=== PATIENT | male | born 1945 | race Caucasian/White ===

== ENCOUNTER 2018-04-02 12:54 | Observation (INO) ==
[2018-04-02] MEDS ORDERED: NS 1,000 ML IV ONE (13:16)
[2018-04-02] MEDS ORDERED: PEPCID IV ONE (13:17)
[2018-04-02] MEDS ORDERED: SODIUM CHLORIDE 0.9% INJ ONE (13:17)
[2018-04-02] MEDS ORDERED: ATIVAN IV ONE (13:26)
[2018-04-02 13:39] LABS: BASO# 0.03 X1000 (0.0-0.2); BASO% 0.3 % (0.0-0.8); EOS# 0.06 X1000 (0.0-0.7); EOS% 0.6 % (0.0-10.0); HEMATOCRIT 44.1 % (42.0-52.0); HEMOGLOBIN 15.2 g/dL (14.0-18.0); IMM GRAN# 0.02 X1000 (0.0-0.04); IMM GRAN% 0.2 % (0.0-0.5); LYMPH# 2.91 X1000 (1.2-3.4); LYMPH% 28.5 % (20.5-51.1); MCH 31.7 PG (27-31); MCHC 34.5 g/dL (33-37); MCV 91.9 FL (81-99); MONO# 0.76 X1000 (0.11-0.59); MONO% 7.4 % (1.7-9.3); MPV 10.7 FL (7.4-10.4); NEUT# 6.43 X1000 (1.4-6.5); PLT 303 X1000 (130-400); RDW 13.1 % (11.5-14.5); WBC 10.21 X1000 (4.8-10.8)
[2018-04-02 14:05] LABS: AGAP 18; ALB/GLOB RATIO 1.6; ALBUMIN 4.3 g/dL (3.5-5.0); ALKALINE PHOSPHATASE 131 U/L (32-122); BUN 10 mg/dL (8-22); CALCIUM 9.9 mg/dL (8.8-10.2); CHLORIDE 99 mmol/L (98-107); COSMO 275; CREATININE 0.9 mg/dL (0.7-1.2); ESTIMATED GFR > 60; GLUCOSE 98 mg/dL (70-104); GOT 34 U/L (10-34); GPT 33 U/L (10-44); POTASSIUM 3.8 mmol/L (3.5-5.1); SODIUM 138 mmol/L (136-145); TCO2 21 mmol/L (25-35)
[2018-04-02 14:27] LABS: UR AMPHETAMINES QUAL NONE DETECTED (NONE DETECT); UR BARBITUATES QUAL NONE DETECTED (NONE DETECT); UR BENZODIAZEPIN QUAL NONE DETECTED (NONE DETECT); UR CANNABINOIDS QUAL NONE DETECTED (NONE DETECT); UR COCAINE QUAL NONE DETECTED (NONE DETECT); UR METHADONE QUAL NONE DETECTED (NONE DETECT); UR OPIATES QUAL NONE DETECTED (NONE DETECT); UR OXYCODONE QUAL NONE DETECTED (NONE DETECT); UR PCP QUAL NONE DETECTED (NONE DETECT)
--- NOTE | 2018-04-02 14:47 | Diag Imaging Result Doc PS360 ---
CHEST-2 VIEWS - 04/02/2018 INDICATION: hemoptysis COMPARISON: 01/11/2018 FINDINGS: The lungs are normally expanded and clear. Heart size and mediastinal contours are normal. No pneumothorax or pleural effusion. IMPRESSION: Negative exam. Electronically signed by Seb Ortega 04/02/2018 2:44 PM
--- NOTE | 2018-04-02 14:48 | Diag Imaging Result Doc PS360 ---
ABDOMEN FLAT/UPRIGHT - 04/02/2018 INDICATION: hematemesis COMPARISON: 01/20/2015 FINDINGS: There is prominent rectal stool impaction with a stool ball measuring 12 cm in length and 7.5 cm in width. There is diffuse gas hyperinflation of the small bowel and colon. No obstruction or free air. IMPRESSION: Rectal stool impaction. Diffuse ileus. Electronically signed by Seb Ortega 04/02/2018 2:45 PM
[2018-04-02 16:45] LABS: INR 0.98; PROTIME 13.8 Seconds (11.0-16.0)
[2018-04-02 16:47] LABS: AMYLASE 41 U/L (20-200); LIPASE 28 U/L (13-60)
[2018-04-02 16:50] LABS: IRON SATURATION 32 %; TIBC 320 ug/dL; TOTAL IRON 103 ug/dL (53-167); UNBOUND IRON 217 ug/dL (112-346)
[2018-04-02] MEDS ORDERED: PROTONIX 80 MG in NS 80 ML IV ONE (17:00)
[2018-04-02 17:07] LABS: FERRITIN 79 ng/mL (30-400)
[2018-04-02] MEDS: KLONOPIN PO PRN (17:34)
[2018-04-02] MEDS: NS 1,000 ML IV SCH (17:34)
[2018-04-02 18:19] LABS: URINE SOURCE CLEAN CATCH
[2018-04-02 18:21] LABS: BILIRUBIN URINE NEGATIVE (NEGATIVE); BLOOD URINE NEGATIVE (NEGATIVE); COLOR YELLOW; GLUCOSE URINE NEGATIVE (NEGATIVE); KETONE URINE NEGATIVE (NEGATIVE); LEUKOCYTES URINE NEGATIVE (NEGATIVE); NITRITE URINE NEGATIVE (NEGATIVE); PH URINE 6.5; PROTEIN URINE NEGATIVE (NEGATIVE); TURBIDITY URINE CLEAR (CLEAR); UROBILINOGEN URINE NORMAL (NORMAL)
[2018-04-02 18:22] LABS: UR EPITHELIAL CELLS <10 /HPF (<10); URINE BACTERIA NEGATIVE /HPF; URINE RBC <10 /HPF (<10); URINE WBC <10 /HPF (<10)
--- NOTE | 2018-04-02 18:30 | HISTORY AND PHYSICAL ---
PRIMARY CARE PHYSICIAN: Dr. Daryl Partida. CHIEF COMPLAINT: Hemoptysis. HISTORY OF PRESENT ILLNESS: Mr. Jordan is a 72-year-old male with a history of anxiety, depression, alcohol dependence, nicotine dependence, hypertension and GERD who presents to the ER with abrupt onset of hemoptysis versus hematemesis. He woke up this morning with a sensation of his throat being full. He then began to cough and expectorated versus vomited blood. This happened 1 more time today, and he decided to come to the ER for evaluation. He was recently diagnosed with bronchitis and has a history of COPD as well, and has been on a Z -Trey for the past 3 days. He denies any fever at this time . No chest pain. He does have some mild epigastric discomfort and has reported some diarrhea over the past few days, but today has firmed up a little. In the ER he had several labs and diagnostics done. A chest x-ray was negative, and an abdomen x-rays revealed rectal stool impaction with diffuse ileus. His laboratory data is unremarkable. He does have an alcohol level of 44. We tried to question him about his daily alcohol use; however, he constantly deflected the question and would not be very specific at all. He did state that he had a drink this morning. He also states that he takes Klonopin and has run out of his medication. He said that he thinks someone has stolen it, and he has been drinking more to help with his anxiety. He is hemodynamically stable at this time. Hemoccult is negative. He is going to be admitted for further treatment and evaluation. PAST MEDICAL HISTORY: 1. COPD. 2. Recent diagnosis of COPD exacerbation. 3. Alcohol dependence. 4. Nicotine dependence. 5. Hypertension 6. BPH. 7. Anxiety and depression. 8. Nonobstructive coronary artery disease. PAST SURGICAL HISTORY: 1. He has had an appendectomy. 2. Carpal tunnel release. SOCIAL HISTORY: He smokes upwards of a pack a day. He is a daily drinker. We are unable to get a specific amount. He denies illicit drug use. FAMILY HISTORY: Significant for lung cancer and congestive heart failure. REVIEW OF SYSTEMS: A 14-point review of systems was obtained by me and negative with the exception of the HPI. ALLERGIES: No known drug allergies. HOME MEDICATIONS: 1. Abilify 5 mg daily. 2. Klonopin 2 mg p.o. t.i.d. 3. Cymbalta 60 mg p.o. daily. 4. Zestoretic 20-25 one daily. 5. Flomax 0.4 mg daily. PHYSICAL EXAMINATION: VITAL SIGNS: Blood pressure is 174/108, heart rate 99, respiratory rate 20, O2 saturation 96% on room air. Temperature is 99 degrees Fahrenheit. GENERAL: Chronically ill and disheveled-appearing 72-year-old male lying in hospital bed in no acute distress. NEUROLOGIC: He is awake, alert and oriented. Follows commands without focal deficits. HEENT: Head is atraumatic, normocephalic. His pupils are equal, round, and reactive to light. Oral mucosa is dry. NECK: Trachea is midline. There is no JVD. CHEST: Diminished at the based but clear to auscultation. CARDIOVASCULAR: Regular rate and rhythm. S1 and S2 noted. No murmurs. GI: Soft, nondistended, nontender. Bowel sounds are hypoactive. EXTREMITIES: Without edema,clubbing or cyanosis. Pulses are 1+ bilaterally. DIAGNOSTIC DATA: Abdomen x-ray shows rectal stool impaction with diffuse ileus. Chest x-ray is negative. WBCs 10.21, hemoglobin 15.2, hematocrit 44.1, platelet count 303. INR 0.98. Sodium 138, potassium 3.8, chloride 99. CO2 is 21, anion gap 18, BUN 10, creatinine 0.9, glucose 98. Calcium 9.9. AST 34, ALT 33, alkaline phosphatase 131, albumin 4.3. Amylase 41, lipase 28. Toxicology is negative with the exception of alcohol that is 44. ASSESSMENT/PLAN: 1. Hemoptysis versus hematemesis: Given the history of more than likely mild hematemesis, we are going to check a thorax, abdomen and pelvis CT, given the diffuse complaints as well as ileus on abdomen x-ray. Will start a Protonix drip and trend his hemoglobin and hematocrit. Will reevaluate tomorrow if hemoglobin and hematocrit drop or he has any more hematemesis. Will consult GI. If not, he will need to follow up with GI on an outpatient basis. 2. Ileus: Likely due to rectal stool impaction. Will check a CT and go from there. If the CT is negative for anything acute, may start him on some MiraLAX. 3. Alcohol dependence: High risk for withdrawal given his alcohol dependence as well as heavy use of benzodiazepines. Will continue his regular benzodiazepine and add IV Ativan if necessary. Will monitor him closely and make sure his CIWA scale is placed on the chart as well. 4. Nicotine dependence. We have advised the patient to quit smoking. Will write a nicotine patch. Continue daily cessation education. 5. Hypertension. Will treat with IV right now. He is on an angiotensin- converting-enzyme inhibitor with diuretic, which if bleeding, would be contraindicated. 6. Deep venous thrombosis prophylaxis with sequential compression devices 7. Further recommendations to follow this. Dictated by RONY Harris for Ze Way MD cc: RONY Harris MD Agree with above. the following is my own face to face assessment and exam. Patient with history of alcohol abuse presents with complaints of hemoptysis at home. no further vomiting since arrival. FOBT negative. abdomen: soft, nontender, nondistended on exam. abx ray suggesting ileus so patient was admitted for observation, CT abd, IVF, and monitoring of blood counts. Patient states that he ran out of his home klonopin and has been drinking heavily since then. on review of PDMP, it appears that he filled a 1 month supply of klonopin 2mg TID approximately 2 weeks ago. MTDD
--- NOTE | 2018-04-02 18:40 | Diag Imaging Result Doc PS360 ---
CT THORAX/ABD/PELVIS W/CON - 04/02/2018 INDICATION: hemoptysis, ileus COMPARISON: None FINDINGS: CHEST: There is no adenopathy. Heart and great vessels are normal. Airways are clear. There is a very faint infiltrate in the posterior apical right upper lobe. No significant COPD. There are moderate degenerative changes of the spine. No acute or suspicious bony lesion. Abdomen pelvis: There are bilateral renal cysts. Otherwise all abdominal organs are normal. No bowel obstruction or inflammation. No free air or free fluid. There is diffuse wall thickening of the urinary bladder suggesting cystitis. The prostate is irregular with a small hypoenhancing nodule projecting into the urinary bladder measuring just over a centimeter. There is mild rectal stool impaction. There is some rotary scoliosis of the thoracolumbar spine. There are moderate degenerative changes of the spine. No acute or suspicious bony lesion. IMPRESSION: 1. Faint right upper lobe infiltrate compatible with pneumonia. 2. Cystitis of the urinary bladder. 3. Mild rectal stool impaction. 4. Indeterminate, small nodule of the prostate gland. Outpatient management recommended. This exam was performed using automated exposure control, adjustment of mA or kV according to patient size, and/or use of iterative reconstruction technique Electronically signed by Seb Ortega 04/02/2018 6:38 PM
[2018-04-02 20:49] LABS: HEMATOCRIT 36.5 % (42.0-52.0); HEMOGLOBIN 12.7 g/dL (14.0-18.0)
[2018-04-03 01:58] LABS: HEMATOCRIT 37.8 % (42.0-52.0); HEMOGLOBIN 13.1 g/dL (14.0-18.0)
[2018-04-03] MEDS: NS 1,000 ML IV SCH ×2 (02:59→16:00)
[2018-04-03] MEDS: KLONOPIN PO PRN ×2 (03:05→11:22)
[2018-04-03] MEDS ORDERED: PROTONIX 80 MG in NS 80 ML IV SCH (05:00)
[2018-04-03 06:26] LABS: BASO# 0.03 X1000 (0.0-0.2); BASO% 0.4 % (0.0-0.8); EOS# 0.26 X1000 (0.0-0.7); EOS% 3.6 % (0.0-10.0); HEMATOCRIT 36.9 % (42.0-52.0); HEMOGLOBIN 12.6 g/dL (14.0-18.0); LYMPH# 2.25 X1000 (1.2-3.4); LYMPH% 31.3 % (20.5-51.1); MCH 31.9 PG (27-31); MCHC 34.1 g/dL (33-37); MCV 93.4 FL (81-99); MONO# 0.55 X1000 (0.11-0.59); MONO% 7.6 % (1.7-9.3); MPV 10.4 FL (7.4-10.4); NEUT# 4.11 X1000 (1.4-6.5); NEUT% 57.1 % (42.2-75.2); PLT 223 X1000 (130-400); RBC 3.95 XMIL (4.7-6.1); RDW 13.1 % (11.5-14.5)
[2018-04-03 06:52] LABS: AGAP 12; ALB/GLOB RATIO 1.8; ALBUMIN 3.4 g/dL (3.5-5.0); ALKALINE PHOSPHATASE 103 U/L (32-122); BUN 11 mg/dL (8-22); CALCIUM 9.1 mg/dL (8.8-10.2); CHLORIDE 108 mmol/L (98-107); COSMO 284; CREATININE 0.9 mg/dL (0.7-1.2); ESTIMATED GFR > 60; GLUCOSE 84 mg/dL (70-104); GOT 18 U/L (10-34); GPT 23 U/L (10-44); POTASSIUM 4.1 mmol/L (3.5-5.1); SODIUM 143 mmol/L (136-145); TCO2 23 mmol/L (25-35); TOTAL BILIRUBIN 0.73 mg/dL (0.20-1.00); TOTAL PROTEIN 5.3 g/dL (6.3-8.3)
[2018-04-03 08:47] LABS: HEMATOCRIT 38.4 % (42.0-52.0); HEMOGLOBIN 13.3 g/dL (14.0-18.0)
[2018-04-03] MEDS ORDERED: ULTRAM PO PRN (08:57)
[2018-04-03] MEDS ORDERED: CYMBALTA PO SCH (09:00)
[2018-04-03] MEDS ORDERED: FLOMAX PO SCH (09:00)
[2018-04-03] MEDS ORDERED: DULCOLAX PR SCH (09:00)
[2018-04-03] MEDS ORDERED: ABILIFY PO SCH (09:00)
[2018-04-03] MEDS ORDERED: LEVAQUIN 750 MG/D5W 750 MG/150 ML IVPB IV SCH (09:00)
[2018-04-03] MEDS ORDERED: NICODERM PATCH TD ONE (09:46)
[2018-04-03 15:33] VITALS: BP 176/72
--- NOTE | 2018-04-04 03:53 | CONSULTATION ---
DATE OF CONSULTATION: 04/03/2018 HISTORY OF PRESENT ILLNESS: Mr. Jordan was admitted to the hospital with complaints of hemoptysis. He has had 2 episodes where he felt something in the back of the throat and he spit up. Then he saw bright red blood. He tells me that it was about a couple of spoonfuls of blood. He has not had any melena or bright red blood per rectum. He denies any abdominal pain. Has not had any indigestion, heartburn, or reflux symptoms. He denies coffee-grounds emesis. He has not been nauseated. He tells me he has been very depressed and has not been feeling good. He, however, denies any fever or chills. Denies headache, dizziness, or double vision. His appetite has not been fair. Again, he tells me that he is depressed and does not want to do anything. He has been drinking heavily and smokes. Since admission, he has not had any GI symptoms. He has been able to tolerate a diet. OBJECTIVE: His vitals are stable. ASSESSMENT AND PLAN: The patient appears to have had hemoptysis and no gastrointestinal issues noted. I would recommend to continue a proton pump inhibitor and he is stable enough to be discharged to be followed up at the office from a gastrointestinal perspective. CT scan had shown evidence of possible pneumonia which can be treated with antibiotics. A full consult to be followed. cc: Caleb Dwyer MD
--- NOTE | 2018-04-04 04:09 | DISCHARGE SUMMARY ---
ADMISSION DATE: 04/02/2018 DISCHARGE DATE: 04/03/2018 CONSULTS: Gastroenterology, Dr. Dwyer. IMAGING: Chest x-ray, no acute process. Initial abdominal x-ray, rectal stool impaction, ileus. Followup CT abdomen/pelvis with faint right upper lobe infiltrate compatible with pneumonia, mild rectal stool impaction, small nodule of the prostate gland. LABS: Initial hemoglobin 15.2, repeat 12.7, final 13.3. Initial hematocrit 44.1, repeat 36.5, final 38.4. Complete metabolic panel unremarkable. Urinalysis within normal limits. WBC and platelets within normal limit. Stool occult blood negative. DISCHARGE DIAGNOSES: 1. Possible upper gastrointestinal bleed. 2. Constipation. 3. Alcohol abuse. 4. Benzodiazepine dependence. 5. Community-acquired pneumonia. 6. Prostate nodule. HOSPITAL COURSE: The patient presented initially to the ER complaining of 1 episode of significant volume hematemesis. This was not repeated and there was no further vomiting in the ED. However, initial evaluation showed an abdominal x-ray suggestive of ileus so he is admitted for further evaluation. His initial hemoglobin and hematocrit were normal. Repeat did drop significantly from 15.2 to 12.7, but subsequent rechecks were stable to slightly improved from there and hemoglobin on discharge was 13.3. He was given an enema in the ER and laxatives with improvement in his constipation. CT followup did show constipation, but did not appear to show any true ileus. It did incidentally note a faint right upper lobe infiltrate favored to represent a mild pneumonia, so patient was started on Levaquin for this. Also was incidentally noted to have an indeterminate small nodule of the prostate gland for which outpatient followup with his PCP was recommended. GI evaluated the patient, but as his stool occult blood was negative, he had no further vomiting since arrival to the hospital and after the initial drop, his subsequent hemoglobins and hematocrits remained stable, GI (Dr. Dwyer) recommended discharge with followup in clinic for possible EGD as an outpatient. The patient also endorsed heavy alcohol use especially since he had run out of his Klonopin. The patient has been prescribed Klonopin 2 mg t.i.d. for a prolonged period of time. States he ran out several days ago. [facility], the patient had filled a full month's worth of 2 mg t.i.d. Klonopin approximately 2 weeks prior to admission. He was continued on this during his hospital stay, but when he requested a refill of this prescription, his request was denied. alcohol cessation was discussed but patient did not have any interest in quitting. The patient was discharged in stable condition to follow up with his PCP and GI. DISCHARGE VITAL SIGNS: Temperature 97.8 degrees, pulse 68, respirations 16, blood pressure 155/83, O2 saturation 100% on room discharge. DISCHARGE PHYSICAL EXAMINATION: General: No acute distress. Vitals: As above. HEENT: Well- healed scar along forehead. Otherwise, normocephalic, atraumatic. Moist mucous membranes. No dried blood in the mouth or nares. Moist mucous membranes. No cervical adenopathy. Cardiovascular: Regular rate and rhythm. No murmurs, rubs, or gallops. Pulmonary: Clear to auscultation bilaterally. Abdomen: Soft, nontender. No epigastric tenderness. Nondistended. Bowel sounds positive. Extremities: Peripheral pulses intact. No clubbing, cyanosis, or edema. Neurologic: Cranial nerves 2-12 grossly intact. No focal motor or sensory deficits. No tremulousness or asterixis. Psychiatric: Normal mood and affect. Awake, alert , oriented x3. Skin: No new rashes or lesions noted. DISCHARGE DIET: Regular. DISCHARGE MEDICATIONS: Abilify 5 mg p.o. daily, Klonopin 2 mg p.o. t.i.d., Cymbalta 60 mg p.o. daily, lisinopril/hydrochlorothiazide 20/25 one tablet daily, Flomax 0.4 mg p.o. daily, Protonix 40 mg p.o. daily, Levaquin 750 mg p.o. daily x7 days. FOLLOWUP AND PLAN: Patient to discharge home with Protonix. The patient to follow up with GI for possible outpatient EGD. The patient to take a short course of Levaquin for very mild community-acquired pneumonia. The patient to follow up with PCP for further evaluation of the prostate nodule identified incidentally on CT. Recommended to patient that he discuss with his PCP weaning off of Klonopin as he appears to be dependent on it and likely abusing it. TIME: Greater than 30 minutes spent arranging discharge and counseling patient. [facility]
--- NOTE | 2018-04-04 08:20 | EKG Report ---
Test Performed on : 04/02/2018 1:08:39 PM Test Reason : hemoptysis Blood Pressure : / mmHG Vent. Rate : 099 BPM Atrial Rate : 099 BPM P-R Int : 170 ms QRS Dur : 086 ms QT Int : 364 ms P-R-T Axes : 061 039 038 degrees QTc Int : 467 ms Normal sinus rhythm. Normal ECG When compared with ECG of 11-JAN-2018 18:50, No significant change was found Unconfirmed Result
--- NOTE | 2018-04-04 16:36 | CONSULTATION ---
DATE OF CONSULTATION: 04/03/2018 CONSULTING PHYSICIAN: Dr. Way. REASON FOR CONSULT: Hemoptysis. HISTORY: Mr. Jordan is a 72-year-old white male with a history of gastroesophageal reflux disease. He has been under the weather. He has been depressed. Living by himself. He is retired. He has been drinking quite heavy, and he is a smoker as well. He tells me that he had felt something in the back of the throat, and coughed up, and apparently had spit-up a couple of spoonfuls of blood. It was bright red blood. He had not had any nausea or hematemesis or coffee- ground emesis. He denies indigestion, heartburn, reflux symptoms. He carries a diagnosis of reflux disease, but he did not have any symptoms of reflux. His appetite has been fair, but he does not want to eat, as he has he is depressed, and lives by himself. He denied any fever or chills. He has had no chest pain, shortness of breath, or palpitations. Denies any cough or sputum. He has not had any constipation or diarrhea. Denies any blood or mucus in his stool. Has not had any melena. Denies any dysuria, polyuria, or hematuria. PAST MEDICAL HISTORY: Significant for gastroesophageal reflux disease, COPD, hypertension, BPH. PAST SURGICAL HISTORY: He has had an appendectomy and carpal tunnel release. HOME MEDICATIONS: The patient is currently on Zestoretic, Cymbalta, Klonopin, Abilify, and Flomax. ALLERGIES: No known drug allergies. SOCIAL HISTORY: He is retired, lives by himself. He has 2 sons. [place]. He smokes about a pack of cigarettes per day and drinks heavily, and drinks daily. He does not use illicit drugs. FAMILY HISTORY: Noncontributory. REVIEW OF SYSTEMS: As per HPI above. PHYSICAL EXAMINATION: General: A very pleasant white male. He is lying in bed. He is conscious, alert, and appeared to be in no distress, but he appeared to be withdrawn. Vital Signs: Temperature 98.4 degrees, pulse 66 per minute, breathing 16, blood pressure 161/95. Head: Atraumatic, normocephalic. Eyes: Conjunctivae normal. Sclerae anicteric. Nose: Nares are patent. No discharge. Mouth: Buccal mucosa moist. Throat: Normal. Neck: Neck is supple. No lymphadenopathy or thyromegaly. Chest: Bilaterally symmetrical. It is moving with respirations. Breath sounds audible bilaterally. No rhonchi or creps could be heard. Heart: Audible. No murmur could be appreciated. Abdomen: Full, soft, nontender. I could not appreciate any masses or organomegaly. No ascites noted. Bowel sounds audible. Extremities: No pedal edema, cyanosis, clubbing was noted. CORE ANALYSIS OPERATOR: Grossly intact. No sensory or motor deficit. LABORATORIES: Reviewed, which showed WBC of 7.20. Hemoglobin today 13.3, yesterday on admission was 12.7. Hematocrit 38.4, which yesterday was 36.5. MCV 93.4. Platelets were 223. PT 13.8, INR 0.98. Sodium 143, potassium 4.1, chloride 108, bicarb 23, BUN is 11, creatinine 0.9. Transaminases were normal. Alkaline phosphate 103. Urinalysis negative. He did have plasma ethyl alcohol present. IMPRESSION: A 72-year-old gentleman who had presented with symptoms suggestive of hemoptysis, rather than hematemesis. He has not had any melena or any other signs of GI bleed. His hemoglobin, although low, but has been stable. There was no drop in his hemoglobin or hematocrit. He is asymptomatic from a GI point of view. CT scan done showed evidence of pneumonia. At this point, I do not think he needs any GI intervention. I would continue current treatment. I have put him on GI prophylaxis by putting on proton pump inhibitor daily. In the meantime, continue antibiotic, and discharge once he is stable from other medical point of view. I will be happy to follow as an outpatient. I have had a discussion with him about abstinence from alcohol, and stop smoking as well, but the patient seems to be withdrawn and depressed. He may need intervention in that regard. cc: Caleb Dwyer MD
--- NOTE | 2018-04-07 19:43 | PROVIDER DOCUMENTATION ---
This chart was entered by Cathy Walton Scribe, acting as scribe for Seamus Padron DO. HPI-Abdominal Pain/GI Problem - General Stated Complaint: vomiting blood Time Seen by Provider: 04/02/18 12:55 Source: patient, EMS Allergies/Adverse Reactions: Patient Allergies Allergy/AdvReac Type Severity Reaction Status Date / Time No Known Allergies Allergy Verified 01/11/18 19:02 Home Medications: Home Medication List Medication Instructions Recorded Confirmed Last Taken Type Lisinopril/Hydrochlorothiazide 1 each PO DAILY 04/06/13 04/02/18 08/25/13 09:00 History [Zestoretic 20-25 Tablet] Clonazepam [Klonopin] 2 mg PO TID PRN 07/15/13 04/02/18 08/18/13 History Tamsulosin [Flomax] 0.4 mg PO DAILY 07/15/13 04/02/18 08/25/13 09:00 History Aripiprazole [Abilify] 5 mg PO DAILY 04/02/18 04/02/18 Unknown History Duloxetine [Cymbalta] 60 mg PO DAILY 04/02/18 04/02/18 Unknown History Levofloxacin [Levaquin] 750 mg PO DAILY #7 tab 04/03/18 Unknown Rx Pantoprazole [Protonix] 40 mg PO DAILY@0700 #30 tab 04/03/18 Unknown Rx - History of Present Illness-ABD Nature of Presenting Problems: 72 y/o male presents to the ED via EMS after vomiting blood which awoke him this am. The patient states this is a large amount of red blood. The patient states he was seen at ER in [place] on Wednesday for similar symptoms and was given Z pack which he has taken four tablets. The patient states he is out of his Klonopin and he needed something for his nerves so he drank about a half pint of Yana last night. Abdominal Pain Onset Location: reports: other (None) Quality of Pain: reports: none Onset/Duration: reports: unsure Timing: reports: still present Modifying Factors: improves with: nothing Associated Symptoms: denies: diarrhea, fever/chills, genitourinary problems Emesis Description: reports: red blood, other (thick) Bruising or Bleeding Gums?: No Similar Symptoms Previously?: Yes Recently seen or treated by another doctor?: Yes ([facility] Wednesday ) Review of Systems - Adult - REVIEW OF SYSTEMS - ADULT Constitutional: denies: chills, fever, night sweats Eyes: reports: no symptoms reported Ears, Nose, Mouth & Throat: reports: no symptoms reported Cardiovascular: reports: no symptoms reported Respiratory: reports: no symptoms reported Gastrointestinal: reports: hematemesis. denies: abdominal pain, diarrhea, difficulty swallowing Genitourinary: reports: no symptoms reported Musculoskeletal: reports: no symptoms reported Integumentary: reports: no symptoms reported Neurological: reports: no symptoms reported Psychiatric: reports: anxiety, alcohol/drug dependence. denies: suicidal thoughts Endocrine: reports: no symptoms reported Hematologic/Lymphatic: reports: no symptoms reported Allergic/Immunologic: reports: no symptoms reported All Other Systems: Reviewed and Negative Past History - Adult - PAST MEDICAL HISTORY-ADULT Review of Records: reports: Old Records Reviewed, Nursing Assessment Review, Medications Reviewed - IMMUNIZATION STATUS Childhood Immunizations: See Nurse Assessment Flu Vaccine: See Nurse Assessment - SOCIAL HISTORY Smoking: cigarettes, greater than 1 pack/day Provider spent 3-5 mins advising pt. on dangers of tobacco.: Discussed manners to quit use, and f/u contacts for add'l counseling. Substance Use: alcohol Alcohol Use Frequency: every day Physical Exam-General - PHYSICAL EXAM-ADULT Initial Vital Signs Reviewed: Yes - CONSTITUTIONAL General Appearance: alert, no apparent distress - HEAD, EARS, NOSE, MOUTH & THROAT HENMT: normocephalic/atraumatic, moist mucous membranes - NECK Neck: non-tender, full range of motion, supple - RESPIRATORY Respiratory: normal breath sounds, rhonchi (left greater than right). negative : chest non-tender, rales - CARDIOVASCULAR Cardiovascular: regular rate, rhythm, no edema, no gallop, no JVD - GASTROINTESTINAL (ABDOMEN) Abdominal Exam: non tender, soft, other (long xiphoid process). negative: guarding, rebound - GENITOURINARY Rectal Exam: normal rectal tone, prostate enlarged/nodule (mild), other (brown stool present in rectum). negative: tenderness - MUSCULOSKELETAL Extremity: non-tender, no pedal edema, no calf tenderness - SKIN Integumentary: normal color, warm/dry - NEUROLOGIC Neurologic: grossly normal Progress - PLAN OF CARE/RESULTS Result Diagrams: 04/03/18 08:02 04/03/18 06:00 - REASSESSMENT Reassessment #1 Time Reassessed: 15:29 Status: other (physician at bedside) - EKG 1 Time of EKG reading by physician:: 13:08 EKG Read and Signed by:: Seamus Padron EKG Interpretation (*Must complete 3 of following elements*): Normal Rate: 99 Rhythm: NSR Candler: normal NC Interval: normal - XRAY 1 XRAY Study: Abdomen Impression: Abnormal (ABDOMEN FLAT/UPRIGHT - 04/02/2018 INDICATION: hematemesis COMPARISON: 01/20/2015 FINDINGS: There is prominent rectal stool impaction with a stool ball measuring 12 cm in length and 7.5 cm in width. There is diffuse gas hyperinflation of the small bowel and colon. No obstruction or free air. IMPRESSION: Rectal stool impaction. Diffuse ileus. Electronically signed by Seb Ortega 04/02/2018 2:45 PM) 2 XRAY Study: Chest Impression: Normal (CHEST-2 VIEWS - 04/02/2018 INDICATION: hemoptysis COMPARISON: 01/11/2018 FINDINGS: The lungs are normally expanded and clear. Heart size and mediastinal contours are normal. No pneumothorax or pleural effusion. IMPRESSION: Negative exam. Electronically signed by Seb Ortega 04/02/2018 2:44 PM) - CONSULTS/PCP/HOSPITALIST Notification #1 *Consult/PCP/Hospitalist*: Jn Time Discussed: 15:44 ( ) Reason/Comments: GI bleed Consult Disposition: Will see in ED (Dr. Way) Departure - Departure Date of Disposition Decision: 04/02/18 Time of Disposition Decision: 15:47 DIAGNOSIS: Tobacco abuse disorder Disposition: ADMITTED INPATIENT 09 Certified Medical Emergency: Emergent Condition: Serious - Critical Care Note This patient required my direct & personal management of CC.: No Attestation - Physician/ VANDANA Attestation Patient care was provided by Advanced Practice Provider:: No The physician spent face to face time with patient:: Yes Advanced Practice Provider documentation review:: Supervising physician onsite and consulted in the evaluation and care of this patient. The physician did have a face to face encounter with the patient. This chart was documented by the indicated eloinaibe, (Cathy Walton Scribe) and accurately reflects the services I performed and decisions made by , Seamus Padron DO, as attested by the provider's signature.
== END 2018-04-03 17:25 | disposition home or self-care (01) ==
LOC: ED 12:54 → 4N 12:54
PROVIDERS: ATTEND Internal Medicine
CPT/HCPCS: 36415; 71020; 71046; 71260; 74019; 74020; 74177; 80053; 80101; 80301; 80307; 80320; 80324; 80345; 80346; 80353; 80358; 80361; 80365; 81001; 82055; 82150; 82270; 82607; 82728; 82746; 83540; 83550; 83690; 83992; 85014; 85018; 85025; 85610; 93005; 96361; 96374; 96375; 99285; A9270; C9113; G0431; G0434; G0479; G0480; G6040; J1956; J2060; J7030; Q9967; S0028; S0164

== ENCOUNTER 2019-02-08 10:03 | Inpatient (IN) ==
[2019-02-08] MEDS ORDERED: IMODIUM PO PRN ×2 (12:08)
[2019-02-08] MEDS ORDERED: DULCOLAX PR PRN (12:08)
[2019-02-08] MEDS ORDERED: SENOKOT PO PRN (12:08)
[2019-02-08] MEDS ORDERED: MAALOX PLUS LIQUID PO PRN (12:08)
[2019-02-08] MEDS ORDERED: TUBERSOL ID ONE (12:08)
[2019-02-08] MEDS ORDERED: ZOFRAN IV PRN (12:08)
[2019-02-08] MEDS ORDERED: TYLENOL PO PRN (12:08)
[2019-02-08] MEDS ORDERED: PHENOBARBITAL IV PRN (12:08)
[2019-02-08] MEDS ORDERED: ZOFRAN ODT PO PRN (12:08)
[2019-02-08] MEDS ORDERED: NICOTINE GUM BUCCAL PRN (12:08)
[2019-02-08] MEDS ORDERED: ZOFRAN IM PRN (12:08)
[2019-02-08] MEDS ORDERED: MOTRIN PO PRN (12:08)
[2019-02-08] MEDS ORDERED: D5W 1,000 ML IV PRN (12:08)
[2019-02-08 12:35] LABS: URINE SOURCE CLEAN CATCH
[2019-02-08 12:39] LABS: BILIRUBIN URINE NEGATIVE (NEGATIVE); BLOOD URINE NEGATIVE (NEGATIVE); COLOR YELLOW; GLUCOSE URINE NEGATIVE (NEGATIVE); KETONE URINE TRACE mg/dL (NEGATIVE); LEUKOCYTES URINE NEGATIVE (NEGATIVE); NITRITE URINE NEGATIVE (NEGATIVE); PROTEIN URINE NEGATIVE (NEGATIVE); SP GRAVITY URINE 1.009; TURBIDITY URINE CLEAR (CLEAR); UROBILINOGEN URINE NORMAL (NORMAL)
[2019-02-08 12:41] LABS: UR EPITHELIAL CELLS <10 /HPF (<10); URINE BACTERIA NEGATIVE /HPF; URINE RBC <10 /HPF (<10); URINE WBC <10 /HPF (<10)
[2019-02-08] MEDS ORDERED: FLU VACCINE IM ONE (12:41)
[2019-02-08 12:48] LABS: UR AMPHETAMINES QUAL NONE DETECTED (NONE DETECT); UR BARBITUATES QUAL NONE DETECTED (NONE DETECT); UR BENZODIAZEPIN QUAL PRESUMPTIVE POSITIVE (NONE DETECT); UR CANNABINOIDS QUAL NONE DETECTED (NONE DETECT); UR COCAINE QUAL NONE DETECTED (NONE DETECT); UR METHADONE QUAL NONE DETECTED (NONE DETECT); UR METHAMPHETAMINE QUAL NONE DETECTED (NONE DETECT); UR OPIATES QUAL PRESUMPTIVE POSITIVE (NONE DETECT); UR OXYCODONE QUAL NONE DETECTED (NONE DETECT); UR PCP QUAL NONE DETECTED (NONE DETECT); UR PROPOXYPHENE QUAL NONE DETECTED (NONE DETECT); UR TCA QUAL NONE DETECTED (NONE DETECT)
[2019-02-08 13:47] LABS: HEMATOCRIT 41.5 % (42.0-52.0); HEMOGLOBIN 14.7 g/dL (14.0-18.0); MCHC 35.4 g/dL (33-37); MCV 90.2 FL (81-99); MPV 9.8 FL (7.4-10.4); RBC 4.6 XMIL (4.7-6.1); RDW 12.9 % (11.5-14.5); WBC 16.32 X1000 (4.8-10.8)
[2019-02-08 14:12] LABS: ALBUMIN 4.6 g/dL (3.5-5.0); CALCIUM 10.1 mg/dL (8.8-10.2); CREATININE 1.2 mg/dL (0.7-1.2); POTASSIUM 3.2 mmol/L (3.5-5.1); TOTAL BILIRUBIN 0.6 mg/dL (0.20-1.00); TOTAL PROTEIN 7.3 g/dL (6.3-8.3)
[2019-02-08 14:16] LABS: INR 0.98; PROTIME 13.5 Seconds (11.0-16.0)
[2019-02-08] MEDS ORDERED: BENTYL PO PRN (14:49)
[2019-02-08] MEDS ORDERED: SALINE LOCK IV FLUID XX ONE (14:49)
[2019-02-08] MEDS ORDERED: LIBRIUM PO SCH (15:00)
[2019-02-08] MEDS: LIBRIUM PO SCH ×2 (15:55→20:33)
[2019-02-08] MEDS: KLOR-CON PO SCH ×2 (15:56→20:33)
[2019-02-08] MEDS ORDERED: M.V.I.-12 10 ML, FOLIC ACID 1 MG, MAGNESIUM SULFATE 1 GM, THIAMINE 100 MG in NS 1,000 ML IV ONE (16:00)
[2019-02-08] MEDS: ATARAX PO PRN (16:37)
[2019-02-08] MEDS: NICODERM PATCH TD PRN (17:07)
[2019-02-08] MEDS: DESYREL PO PRN (20:34)
[2019-02-09] MEDS: SEROQUEL PO PRN ×2 (00:54→21:53)
[2019-02-09] MEDS: ATARAX PO PRN (00:54)
[2019-02-09] MEDS: LIBRIUM PO SCH ×4 (03:11→21:38)
[2019-02-09] MEDS: ROBAXIN PO PRN (03:11)
[2019-02-09] MEDS: PROTONIX PO SCH (06:44)
[2019-02-09 06:57] LABS: HEMATOCRIT 37.9 % (42.0-52.0); HEMOGLOBIN 12.9 g/dL (14.0-18.0); MCH 32.4 PG (27-31); MCV 95.2 FL (81-99); MPV 10.1 FL (7.4-10.4); RBC 3.98 XMIL (4.7-6.1); RDW 13.4 % (11.5-14.5); WBC 11.55 X1000 (4.8-10.8)
[2019-02-09] MEDS ORDERED: PRILOSEC PO SCH (07:00)
[2019-02-09 07:27] LABS: AGAP 10; ALBUMIN 3.7 g/dL (3.5-5.0); ALKALINE PHOSPHATASE 79 U/L (32-122); BUN 28 mg/dL (8-22); CALCIUM 9.5 mg/dL (8.8-10.2); CHLORIDE 108 mmol/L (98-107); COSMO 282; CREATININE 1.2 mg/dL (0.7-1.2); GLUCOSE 143 mg/dL (70-104); GOT 21 U/L (10-34); POTASSIUM 4.7 mmol/L (3.5-5.1); SODIUM 137 mmol/L (136-145); TCO2 19 mmol/L (25-35)
[2019-02-09 07:28] LABS: GPT 79 U/L (10-44)
[2019-02-09] MEDS: DESYREL PO SCH (10:43)
[2019-02-09] MEDS: KLOR-CON PO SCH ×2 (10:43→21:38)
[2019-02-09] MEDS: FOLIC ACID PO SCH (10:43)
[2019-02-09] MEDS: PRINIVIL PO SCH (10:44)
[2019-02-09] MEDS: THERA M PLUS PO SCH (10:44)
[2019-02-09] MEDS: FLOMAX PO SCH (10:44)
[2019-02-09] MEDS: CYMBALTA PO SCH (10:44)
[2019-02-09] MEDS: VITAMIN B-1 PO SCH (10:44)
[2019-02-09] MEDS: ZYPREXA PO SCH (10:46)
[2019-02-09] MEDS: NICODERM PATCH TD PRN (16:52)
[2019-02-10] MEDS: LIBRIUM PO SCH ×4 (03:26→21:01)
[2019-02-10] MEDS: ROBAXIN PO PRN ×2 (05:55→13:58)
[2019-02-10] MEDS: PROTONIX PO SCH ×2 (05:55→06:13)
[2019-02-10] MEDS: KLOR-CON PO SCH ×2 (10:01→21:00)
[2019-02-10] MEDS: THERA M PLUS PO SCH (10:02)
[2019-02-10] MEDS: ZYPREXA PO SCH (10:02)
[2019-02-10] MEDS: CYMBALTA PO SCH (10:02)
[2019-02-10] MEDS: FOLIC ACID PO SCH (10:02)
[2019-02-10] MEDS: VITAMIN B-1 PO SCH (10:02)
[2019-02-10] MEDS: DESYREL PO SCH ×2 (10:02→10:47)
[2019-02-10] MEDS: PRINIVIL PO SCH (10:02)
[2019-02-10] MEDS: FLOMAX PO SCH (10:06)
--- NOTE | 2019-02-10 19:35 | PROGRESS NOTE ---
DATE: 02/10/2019 SUBJECTIVE: Patient notes that he feels absolutely terrible. However, unfortunately he is unable to delineate what this actually means. States that he just knows he is going to have a panic attack at any moment because he has not been on his Klonopin. States that he is a really anxious person and Klonopin is the only thing that prevents him from being anxious. But notes that he will take Xanax or Valium if will give that to him. PHYSICAL: Vital signs reviewed. Temperature 99 degrees, pulse 75, respiratory rate 18, BP 114/65.General: Patient is awake currently in no respiratory distress. He is lying in bed. He is calm. HEENT: Normocephalic. Neck: Supple. CV: Regular rate. Chest: Clear. Abdomen: Soft, nondistended. Extremities: Moves all extremities. ASSESSMENT: 1. Nausea, vomiting. 2. Abdominal pain. 3. Tremors. 4. Myalgias. 5. Paresthesias. 6. Chronic anxiety, depression. 7. Chronic alcohol abuse, withdrawal and stabilization. 8. Chronic benzodiazepine abuse, withdrawal and stabilization. CONSULTATIONS: None. PLAN: We will continue patient in the hospital. Again discussed with him that Librium and Klonopin both have benzodiazepines so he will not actually go into withdrawal from Klonopin as he currently is still on a benzodiazepine. Discussed with him that Klonopin cannot prevent futuristic unforeseen panic attack however it can cause abuse, habituation dependence and addiction. We will continue to wean Librium and continue to follow. -5 cc: Paco Goldman MD
[2019-02-10] MEDS: SEROQUEL PO PRN (21:00)
--- NOTE | 2019-02-10 23:08 | HISTORY AND PHYSICAL ---
CHIEF COMPLAINT: Nausea, vomiting. HISTORY OF PRESENT ILLNESS: Patient is a 73-year-old male who [facility] secondary to nausea, vomiting, abdominal pain, myalgias. Notes that he has been heavily drinking. He also takes 2 mg of Klonopin 3 times a day. However, states he does not abuse this, but oddly enough he is out early frequently. SOCIAL HISTORY: He is . He is retired. Lives at home in [place]. PAST MEDICAL HISTORY: History of hypertension, bleeding ulcers, chronic anxiety, depression, panic attacks, history of blackouts with his most recent being August of 2018 that was felt to be alcohol related. Has recurrent urinary infections, recurrent pneumonia, chronic reflux, BPH. ALLERGIES: No known drug allergies. MEDICATIONS: Klonopin 2 mg 3 times a day, Flomax 0.4 daily, omeprazole 40, Cymbalta 60, lisinopril 40, amlodipine 10 daily. FAMILY HISTORY: Noncontributory. REVIEW OF SYSTEMS: CIWA score is elevated at 29 secondary to nausea, vomiting, abdominal pain, myalgias, paresthesias, paroxysmal sweating, frequent fidgety, anxious, unable to sit still, is easily startled, has sensitivity to light and noise. He has had suicidal ideations off and on secondary to his chronic anxiety, but denies any current plans. Has been to Psychiatry in the past but has not been going recently. Currently, he is getting his Klonopin and Cymbalta from his primary doctor. Notes that he has stopped Abilify because he could not afford it. SUBSTANCE ABUSE HISTORY: The patient has been in treatment in detox in [place] in 2014 for 5 days and 2016 for 5 days. Each time he relapsed pretty quickly. Notes that alcohol has caused health problems, financial problems and relationship problems. Denies abusing Klonopin, but does note that he frequently runs out early and takes opiates when he runs out. He began drinking at 18, currently drinks a pint of 80 proof flynn a day and usually beer on the weekends. Has been taking Klonopin for years. He clearly has been overtaking his Klonopin although he denies such. Started opiates in his 50s, typically takes only when he runs out of Klonopin. Started smoking in his 20s. Currently smokes a pack a day. PHYSICAL EXAMINATION: VITAL SIGNS: Reviewed. GENERAL: He is awake, alert. He is in no current respiratory distress. He is anxious, nervous, jittery on exam. HEENT: Normocephalic, atraumatic. RAMON. NECK: Supple. CARDIOVASCULAR: Regular rate. No murmurs. CHEST: Clear and nonlabored. No wheezing. ABDOMEN: Soft, nondistended, nontender. EXTREMITIES: Moves all extremities. NEUROLOGIC: No focal changes. ASSESSMENT: 1. Leukocytosis of undetermined origin. White count is elevated. 2. Nausea, vomiting. 3. Abdominal pain. 4. Myalgias. 5. Paresthesias. 6. Paroxysmal sweating. 7. Hyponatremia likely secondary to his alcoholism. 8. Hypokalemia. 9. History of hypertension. 10. Chronic tobacco abuse. 11. Alcohol abuse, withdrawal and stabilization. 12. Benzodiazepine, Klonopin abuse, withdrawal and stabilization. PLAN: We will continue patient in the hospital. Place him on high-dose Librium taper. Obviously we will stop his Klonopin. We will place him on Librium. Continue his home medications as needed. We will follow his blood pressures as they certainly may decrease once he stops drinking. Discussed with patient the perils of smoking. We will recheck his white count. We will not start him on antibiotics currently as he has no current signs nor symptoms of infection and we will follow. We will replace his potassium, give him a banana bag. cc: Paco Goldman MD
[2019-02-11] MEDS: LIBRIUM PO SCH ×5 (01:47→17:11)
[2019-02-11] MEDS: DESYREL PO PRN (01:47)
[2019-02-11] MEDS: PROTONIX PO SCH (06:27)
[2019-02-11] MEDS: FOLIC ACID PO SCH (09:35)
[2019-02-11] MEDS: DESYREL PO SCH (09:35)
[2019-02-11] MEDS: PRINIVIL PO SCH (09:35)
[2019-02-11] MEDS: FLOMAX PO SCH (09:35)
[2019-02-11] MEDS: KLOR-CON PO SCH (09:35)
[2019-02-11] MEDS: CYMBALTA PO SCH (09:36)
[2019-02-11] MEDS: VITAMIN B-1 PO SCH (09:36)
[2019-02-11] MEDS: THERA M PLUS PO SCH (09:36)
[2019-02-11] MEDS: ZYPREXA PO SCH (09:36)
[2019-02-11] MEDS: KLONOPIN PO PRN (10:34)
[2019-02-12] MEDS: KLOR-CON PO SCH ×2 (02:15→08:21)
[2019-02-12] MEDS: KLONOPIN PO PRN ×2 (02:15→18:52)
[2019-02-12] MEDS: PROTONIX PO SCH (06:05)
[2019-02-12] MEDS: DESYREL PO SCH (08:20)
[2019-02-12] MEDS: FOLIC ACID PO SCH (08:21)
[2019-02-12] MEDS: CYMBALTA PO SCH (08:21)
[2019-02-12] MEDS: ZYPREXA PO SCH (08:21)
[2019-02-12] MEDS: PRINIVIL PO SCH (08:21)
[2019-02-12] MEDS: THERA M PLUS PO SCH (08:21)
[2019-02-12] MEDS: FLOMAX PO SCH (08:21)
[2019-02-12] MEDS: LIBRIUM PO SCH ×3 (08:21→18:40)
[2019-02-12] MEDS: VITAMIN B-1 PO SCH (08:21)
--- NOTE | 2019-02-12 09:45 | PROGRESS NOTE ---
DATE: 02/11/2019 SUBJECTIVE: Patient notes he still feels terrible. He is not getting out of bed. He is not eating or drinking well. Denies any fevers or chills. Denies any chest pain palpitations. PHYSICAL EXAMINATION: Vital Signs: Reviewed. He is afebrile. Temperature 97.5 degrees, pulse 74, respiratory rate 18, BP 134/71. General: Patient is awake, alert. He is in no respiratory distress. He is pleasant, lying flat on the bed. HEENT: Normocephalic. Neck: Supple. Cardiovascular: Regular rate. No murmurs. Chest: Clear, nonlabored. Abdomen: Soft, nondistended, non tender. Extremities: Moves all extremities. Neurologic: No changes. ASSESSMENT: 1. Nausea and vomiting. 2. Abdominal pain. 3. Myalgias. 4. Paresthesias. 5. Paroxysmal sweating. 6. Polysubstance use and abuse. PLAN: We will continue patient in the hospital. We are going to change him from Librium to his Klonopin and continue to wean his Klonopin. Discussed with him that we will not do 2 mg 3 times a day as it does appear to be a bit excessive and will follow. cc: Paco Goldman MD
--- NOTE | 2019-02-12 14:03 | PROGRESS NOTE ---
DATE: 02/12/2019 SUBJECTIVE: Patient again notes that he feels terrible. Denies any current focal complaints. Denies any fevers or chills. Denies chest pains or palpitations. PHYSICAL EXAMINATION: Vital Signs: Reviewed. Temperature 98 degrees, pulse 76, respiratory rate 18, BP 132/75. General: Patient is awake. No distress. HEENT: Normocephalic. Neck: Supple. Cardiovascular: Regular rate. No murmurs. Chest: Clear, nonlabored. Abdomen: Soft, nondistended, nontender. Extremities: Moves all extremities. Neurologic: No changes. ASSESSMENT: 1. Nausea and vomiting. 2. Abdominal pain. 3. Myalgias. 4. Paresthesias. 5. Paroxysmal sweating. 6. Opiate abuse, withdrawal, and stabilization. 7. Chronic benzodiazepine abuse. 8. Chronic alcohol abuse. PLAN: We will continue patient in the hospital. We have switched to Klonopin. We will begin decreasing this as well. Continue counseling. Hopefully, patient can transition to rehab. cc: Paco Goldman MD
[2019-02-13] MEDS: KLOR-CON PO SCH ×2 (00:51→09:28)
[2019-02-13] MEDS: KLONOPIN PO PRN ×2 (00:51→10:58)
[2019-02-13] MEDS: ROBAXIN PO PRN (00:51)
[2019-02-13] MEDS: SEROQUEL PO PRN (00:51)
[2019-02-13] MEDS: PROTONIX PO SCH (06:16)
--- NOTE | 2019-02-13 09:06 | PROGRESS NOTE ---
DATE: 02/10/2019 SUBJECTIVE: Patient notes that he feels terrible but is unable to delineate why he feels terrible. States that he knows that he is going to have a panic attack at some point because he has not taken his Klonopin. Denies any fevers, chills. Denies any cough, congestion. PHYSICAL: Vital Signs: Reviewed, temperature 99 degrees, pulse 75, respiratory 18, BP 114/65. General: Patient is awake, alert, he is in no respiratory distress lying flat in bed. HEENT: Normocephalic. Neck: Supple. Cardiovascular: Regular rate. Chest: Clear. cc: Paco Goldman MD
[2019-02-13] MEDS: VITAMIN B-1 PO SCH (09:28)
[2019-02-13] MEDS: CYMBALTA PO SCH (09:28)
[2019-02-13] MEDS: THERA M PLUS PO SCH (09:28)
[2019-02-13] MEDS: FLOMAX PO SCH (09:28)
[2019-02-13] MEDS: ZYPREXA PO SCH (09:28)
[2019-02-13] MEDS: FOLIC ACID PO SCH (09:28)
[2019-02-13] MEDS: PRINIVIL PO SCH (09:28)
[2019-02-13] MEDS: DESYREL PO SCH (09:28)
[2019-02-13] MEDS: NICODERM PATCH TD PRN (09:30)
[2019-02-13 14:47] VITALS: BP 120/67
--- NOTE | 2019-02-15 16:16 | DISCHARGE SUMMARY ---
ADMISSION DATE: 02/08/2019 DISCHARGE DATE: 02/13/2019 DISCHARGE DIAGNOSES: 1. Nausea, vomiting. 2. Abdominal pain. 3. Myalgias. 4. Paresthesias. 5. Paroxysmal sweating. 6. Hypertension. 7. History of bleeding ulcer. 8. Frequent falling. 9. Adult failure to thrive. 10. Leukocytosis, resolved. 11. Hyponatremia, resolved. 12. Hypokalemia, resolved. CONSULTATIONS: None. PROCEDURES: None. BRIEF HOSPITAL COURSE: The patient was admitted to the hospital secondary to nausea, vomiting, abdominal pain. His white count thankfully improved as did his sodium and potassium with IV fluids. He was noted to be in alcohol withdrawal and therefore he was placed on high-dose Librium taper. Thankfully continued to improve on discharge. He is awake, alert. His tremors myalgias paresthesias have resolved. He is still very weak and fatigued. He, therefore, will be transferred to rehab. DISPOSITION: Patient is no longer in alcohol withdrawal. He will be transferred to rehab. Did discuss with him on several occasions that he needs to continue to decrease his Klonopin as 2 mg three times a day is an excessive amount, especially in someone who has a past history of alcoholism. We decreased him to 1 mg twice daily. He will continue this in rehab and will continue to slowly wean as tolerated. No other changes made on his chronic home medications or diet. Physical therapy will assist with his activity. TIME SPENT: Greater than 30 minutes was spent in total care. cc: Paco Goldman MD
== END 2019-02-13 15:29 | DRG 897 ==
LOC: P.MEDSURG 11:22
PROVIDERS: ADMIT Family Medicine; ATTEND Family Medicine

== ENCOUNTER 2019-03-07 13:07 | Inpatient (IN) ==
[2019-03-07] MEDS ORDERED: ASPIRIN PO ONE (13:51)
--- NOTE | 2019-03-07 13:55 | EKG Report ---
Test Performed on : 03/07/2019 1:30:35 PM Test Reason : Shortness of breath Blood Pressure : / mmHG Vent. Rate : 075 BPM Atrial Rate : 075 BPM P-R Int : 176 ms QRS Dur : 082 ms QT Int : 390 ms P-R-T Axes : 067 069 061 degrees QTc Int : 435 ms Normal sinus rhythm. Normal ECG When compared with ECG of 02-APR-2018 13:08, No significant change was found Unconfirmed Result
[2019-03-07 14:23] LABS: BASO# 0.05 X1000 (0.0-0.2); BASO% 0.4 % (0.0-0.8); EOS# 0.69 X1000 (0.0-0.7); EOS% 5.4 % (0.0-10.0); HEMOGLOBIN 11.8 g/dL (14.0-18.0); IMM GRAN# 0.06 X1000 (0.0-0.04); IMM GRAN% 0.5 % (0.0-0.5); LYMPH# 2.28 X1000 (1.2-3.4); LYMPH% 17.8 % (20.5-51.1); MCH 32.1 PG (27-31); MCHC 32.8 g/dL (33-37); MCV 97.8 FL (81-99); MONO# 1.06 X1000 (0.11-0.59); MONO% 8.3 % (1.7-9.3); NEUT# 8.64 X1000 (1.4-6.5); NEUT% 67.6 % (42.2-75.2); PLT 269 X1000 (130-400); RBC 3.68 XMIL (4.7-6.1); RDW 14.6 % (11.5-14.5); WBC 12.78 X1000 (4.8-10.8)
--- NOTE | 2019-03-07 14:25 | Diag Imaging Result Doc PS360 ---
EXAM: CHEST-2 VIEWS 03/07/2019 HISTORY: Shortness of breath TECHNIQUE: PA and lateral chest COMMENT: There is blunting of the posterior costophrenic sulci bilaterally. There is fluid in the fissures. There is increased interstitial opacity. IMPRESSION: Pleural effusions and mild pulmonary edema. Electronically signed by Harjeet Saini 03/07/2019 2:23 PM
[2019-03-07 14:30] LABS: INR 1.03; PROTIME 13.6 Seconds (11.0-16.0)
[2019-03-07 14:36] LABS: URINE SOURCE CLEAN CATCH
[2019-03-07 14:40] LABS: BILIRUBIN URINE NEGATIVE (NEGATIVE); BLOOD URINE NEGATIVE (NEGATIVE); COLOR YELLOW; GLUCOSE URINE NEGATIVE (NEGATIVE); KETONE URINE NEGATIVE (NEGATIVE); LEUKOCYTES URINE NEGATIVE (NEGATIVE); NITRITE URINE NEGATIVE (NEGATIVE); PROTEIN URINE NEGATIVE (NEGATIVE); SP GRAVITY URINE 1.011; TURBIDITY URINE CLEAR (CLEAR); UROBILINOGEN URINE NORMAL (NORMAL)
[2019-03-07 14:41] LABS: UR EPITHELIAL CELLS <10 /HPF (<10); URINE BACTERIA NEGATIVE /HPF; URINE RBC <10 /HPF (<10); URINE WBC <10 /HPF (<10)
[2019-03-07 14:49] LABS: ALBUMIN 4.2 g/dL (3.5-5.0); CALCIUM 9.3 mg/dL (8.8-10.2); CREATININE 1.4 mg/dL (0.7-1.2); POTASSIUM 4.9 mmol/L (3.5-5.1); TOTAL BILIRUBIN 0.38 mg/dL (0.20-1.00); TOTAL PROTEIN 6.3 g/dL (6.3-8.3)
[2019-03-07 15:07] LABS: UR AMPHETAMINES QUAL NONE DETECTED (NONE DETECT); UR BARBITUATES QUAL NONE DETECTED (NONE DETECT); UR BENZODIAZEPIN QUAL PRESUMPTIVE POSITIVE (NONE DETECT); UR CANNABINOIDS QUAL NONE DETECTED (NONE DETECT); UR COCAINE QUAL NONE DETECTED (NONE DETECT); UR METHADONE QUAL NONE DETECTED (NONE DETECT); UR OPIATES QUAL NONE DETECTED (NONE DETECT); UR OXYCODONE QUAL NONE DETECTED (NONE DETECT); UR PCP QUAL NONE DETECTED (NONE DETECT)
--- NOTE | 2019-03-07 16:47 | Diag Imaging Result Doc PS360 ---
EXAM: CT ANGIOGRM PULMONARY ARTERIES 03/07/2019 HISTORY: Shorntess of breath TECHNIQUE: This exam was performed using automated exposure control, adjustment of mA or kV according to patient size, and/or use of iterative reconstruction technique. COMMENT: 3-D MIPS were performed. The current study is compared with 04/02/2018. There are no filling defects the pulmonary arteries. The aorta is normal in caliber without evidence of dissection. There are extensive coronary calcifications. There are bilateral pleural effusions. This was not the case previously. There are some prominent subcarinal nodes. This is worse than on the previous study. There is increasing interstitial markings in the lung bases which was not the case previously. There is compressive atelectasis in the lower lobes particularly the right lower lobe. There are ill-defined opacities posteriorly in the right upper lobe which was present to some extent on the previous study although it is slightly more extensive on today's study. The regional skeleton appears to be stable. IMPRESSION: Bilateral pleural effusions and basilar atelectasis. Mild interstitial pulmonary edema. Chronic groundglass opacity in the right upper lobe posteriorly which is worse than on 04/02/2018. The possibility of an atypical pneumonia or even bronchoalveolar cell carcinoma cannot be excluded. Subcarinal adenopathy. Electronically signed by Harjeet Saini 03/07/2019 4:45 PM
--- NOTE | 2019-03-07 17:11 | PROVIDER DOCUMENTATION ---
This chart was entered by Hayden Jolly Scribe, acting as scribe for Gurinder Mitchell MD. HPI-General Adult - General Chief Complaint: Edema Stated Complaint: ANKLE SWELLING DONT FEEL GOOD Time Seen by Provider: 03/07/19 13:36 Source: patient Allergies/Adverse Reactions: Patient Allergies Allergy/AdvReac Type Severity Reaction Status Date / Time No Known Allergies Allergy Verified 03/07/19 13:55 Home Medications: Home Medication List Medication Instructions Recorded Confirmed Last Taken Type Tamsulosin [Flomax] 0.4 mg PO BID 07/15/13 03/07/19 03/07/19 History Duloxetine [Cymbalta] 60 mg PO DAILY 04/02/18 03/07/19 03/07/19 History Lisinopril 40 mg PO DAILY 02/08/19 03/07/19 03/07/19 History Omeprazole 40 mg PO DAILY 02/08/19 03/07/19 03/07/19 History Potassium Chloride 20 meq PO BID 02/08/19 03/07/19 03/07/19 History Trazodone HCl 100 mg PO QHS 02/08/19 03/07/19 1 Day Ago History ~03/06/19 Acetaminophen [Tylenol] 1,000 mg PO BID 03/07/19 03/07/19 03/07/19 History Hydroxyzine [Atarax] 25 mg PO BID 03/07/19 03/07/19 03/07/19 History Olanzapine [Zyprexa] 5 mg PO QHS 03/07/19 03/07/19 1 Day Ago History ~03/06/19 - History of Present Illness -Gen Adult Nature of Presenting Problems: 73 y/o M presents to the ED c/o "feeling bad" for the past few days. Patient reports that he has had some shortness of breath, bilateral lower extremity swelling and anxiety. Patient reports that he saw a receiving manager last year and was told that everything was normal. Patient reports that his shortness of breath is worse with exertion and when laying flat. The patient has no current shortness of breath, but does report over the last week it has been progressive. The patient denies any chest pain. Patient denies nausea, vomiting, diarrhea and all other symptoms. Location of Pain/Injury: reports: lower extremity (bilateral) Severity: reports: mild Onset/Duration: reports: 3 days ago Timing: reports: still present Context/Activities at Onset: reports: light activity Modifying Factors: worse with: exercise, lying down Associated Symptoms: reports: shortness of breath. denies: diarrhea, nausea, vomiting Review of Systems - Adult - REVIEW OF SYSTEMS - ADULT Constitutional: reports: chills. denies: fever Eyes: reports: no symptoms reported. denies: eye pain Ears, Nose, Mouth & Throat: reports: epistaxis. denies: throat pain Cardiovascular: reports: edema, orthopnea. denies: chest pain Respiratory: reports: shortness of breath Gastrointestinal: reports: no symptoms reported. denies: abdominal pain, nausea, vomiting Genitourinary: reports: no symptoms reported. denies: flank pain Musculoskeletal: reports: no symptoms reported. denies: joint pain Integumentary: reports: no symptoms reported. denies: rash Neurological: reports: no symptoms reported. denies: headache/migraines Psychiatric: reports: alcohol/drug dependence (recent hx) Endocrine: reports: no symptoms reported Hematologic/Lymphatic: reports: no symptoms reported Allergic/Immunologic: reports: no symptoms reported Past History - Adult - PAST MEDICAL HISTORY-ADULT Review of Records: reports: Old Records Reviewed Major Childhood Illnesses: reports: denies history Cardiovascular: reports: HTN, hyperlipidemia Respiratory: reports: COPD Gastrointestinal: reports: GERD Genitourinary: reports: denies history Musculoskeletal: reports: denies history Neurological: reports: denies history Psychiatric: reports: depression Endocrine/Immune: reports: denies history Other Conditions: reports: denies history - PRIOR SURGERIES/PROCEDURES Surgical/Procedure History: reports: appendectomy, orthopedic (extremity) - PRIOR HOSPITALIZATIONS Prior Hospitalizations: reports: for other non-related - IMMUNIZATION STATUS Childhood Immunizations: See Nurse Assessment Flu Vaccine: See Nurse Assessment - FAMILY HISTORY Family History: other (CAD and CHF) - SOCIAL HISTORY Smoking: cigarettes, greater than 1 pack/day Alcohol Use Frequency: sober (former use) (quite 1month ago) Physical Exam-General - PHYSICAL EXAM-ADULT Initial Vital Signs Reviewed: Yes - CONSTITUTIONAL General Appearance: appears well, alert, no apparent distress - EYES Eyes: negative: conjuctival exudate, photophobia, sclera injected, scleral icterus, subconjunctival hemorrhage - HEAD, EARS, NOSE, MOUTH & THROAT HENMT: normocephalic/atraumatic, moist mucous membranes, pharynx normal - RESPIRATORY Respiratory: lungs clear, normal breath sounds, decreased breath sounds (bases bilaterally). negative: crackles, stridor, wheezing - CARDIOVASCULAR Cardiovascular: regular rate, rhythm, JVD. negative: no edema (2+ LE edema bilaterally) - GASTROINTESTINAL (ABDOMEN) Abdominal Exam: non tender, soft, distended - MUSCULOSKELETAL Extremity: non-tender. negative: no pedal edema (2+) - SKIN Integumentary: normal color, warm/dry - NEUROLOGIC Neurologic: grossly normal - PSYCHIATRIC Psych/Mental Status: normal mood/affect, normal thought content, normal thought process Progress - PLAN OF CARE/RESULTS Progress/Plan/Lab Results: Vital Signs - 8 hr 03/07/19 13:13 Temperature 98.1 F Pulse Rate 71 Respiratory Rate 18 Blood Pressure 180/96 O2 Sat by Pulse Oximetry 97 Result Diagrams: 03/07/19 14:15 03/07/19 14:15 - REASSESSMENT Reassessment #1 Status: other (scribe note reviewed) Reassessment #2 Status: other (Discussed the case with the hospitalist team who has accepted the patient for admission.) - EKG 1 Time of EKG reading by physician:: 13:31 EKG Read and Signed by:: Sarah Mccall EKG Interpretation (*Must complete 3 of following elements*): Normal Rate: 75 Rhythm: normal sinus rhythm [place]: normal QRS: normal [place] Interval: normal ST Wave: normal - XRAY 1 XRAY Study: Chest Impression: See EMR Report (EXAM: CHEST-2 VIEWS 03/07/2019 HISTORY: Shortness of breath TECHNIQUE: PA and lateral chest COMMENT: There is blunting of the posterior costophrenic sulci bilaterally. There is fluid in the fissures. There is increased interstitial opacity. IMPRESSION: Pleural effusions and mild pulmonary edema. Electronically signed by Harjeet Saini 03/07/2019 2:23 PM 03/07/19 1424 Interpreting Physician: Harjeet Saini MD Dictated Date/Time: 03/07/19 1422 cc: Gurinder Mitchell MD; Amy Sprague MD) Departure - Departure Date of Disposition Decision: 03/07/19 Time of Disposition Decision: 17:10 DIAGNOSIS: New onset of congestive heart failure Disposition: ADMITTED INPATIENT 09 Certified Medical Emergency: Emergent Condition: Fair Referrals and Follow-Ups: Amy Sprague MD [Primary Care Provider] - - Critical Care Note This patient required my direct & personal management of CC.: No Attestation - Physician/ VANDANA Attestation Patient care was provided by Advanced Practice Provider:: No The physician spent face to face time with patient:: Yes Advanced Practice Provider documentation review:: Supervising physician onsite and consulted in the evaluation and care of this patient. The physician did have a face to face encounter with the patient. This chart was documented by the indicated scribe, (Hayden Jolly Scribe) and accurately reflects the services I performed and decisions made by me, Gurinder Mitchell MD, as attested by the provider's signature.
[2019-03-07] MEDS: ROCEPHIN 1 GM in NS 50 ML IV SCH (17:48)
[2019-03-07] MEDS ORDERED: TYLENOL PO PRN (18:22)
[2019-03-07] MEDS ORDERED: APRESOLINE IV PRN (18:22)
[2019-03-07] MEDS ORDERED: NS 1,000 ML IV SCH (18:22)
[2019-03-07] MEDS: ZITHROMAX 500 MG/NS 500 MG/250 ML IVPB IV SCH (18:39)
[2019-03-07] MEDS: DUONEB (A & A) INH SCH (19:18)
[2019-03-07] MEDS ORDERED: LASIX IV ONE (20:15)
[2019-03-07] MEDS ORDERED: KLONOPIN PO PRN (21:00)
[2019-03-07] MEDS: ZYPREXA PO SCH (21:23)
[2019-03-07] MEDS: FLOMAX PO SCH (21:23)
[2019-03-07] MEDS: LOVENOX SUBQ SCH (21:23)
[2019-03-07] MEDS: ATARAX PO SCH (21:24)
[2019-03-07] MEDS: DESYREL PO SCH (21:24)
[2019-03-07] MEDS: TYLENOL PO SCH (21:24)
--- NOTE | 2019-03-07 22:11 | HISTORY AND PHYSICAL ---
PRIMARY CARE PHYSICIAN: Dr. Sprague. CHIEF COMPLAINT: Shortness of breath, cough, chills, wheezing, and some increased right lower extremity edema. HISTORY OF PRESENTING ILLNESS: This is a 73-year-old male who presents to [facility] with complaints of worsening shortness of breath, cough, chills, wheezing, and some right lower extremity edema. States he has a history of recurrent pneumonia. His workup showed a white blood cell count of 12.78 with a D-dimer of 0.72. We did a pulmonary arteriogram that was negative for PE, but it did show chronic ground- glass opacities in the right upper lobe posteriorly, which were worse than on 04/02/2028. The possibility of an atypical pneumonia or even a bronchoalveolar cell carcinoma could not be excluded. He has been saturating 97% to 99% on room air. His blood pressure has been up at 174/116, so he is going to be admitted for further evaluation and treatment. PAST MEDICAL HISTORY: Hypertension, bleeding ulcer, chronic anxiety, depression, panic attacks, recurrent pneumonia, BPH, and chronic reflux. PAST SURGICAL HISTORY: Appendectomy, tonsillectomy, and a wrist surgery. FAMILY HISTORY: Reviewed and noncontributory. SOCIAL HISTORY: He currently lives at a skilled nursing house and has been sober for 1 month after completing the program of [facility] 1 month ago. Denies any current tobacco, alcohol or illicit drug use. ALLERGIES: He has no known drug allergies. HOME MEDICATIONS: Takes metoprolol-XL 50 mg p.o. daily, acetaminophen 1000 mg p.o. b.i.d., Cymbalta 60 mg p.o. daily, hydroxyzine 25 mg p.o. b.i.d., lisinopril 40 mg p.o. daily, Zyprexa 5 mg p.o. at bedtime, omeprazole 40 mg p.o. daily, potassium 20 mEq p.o. b.i.d., Flomax 0.4 mg p.o. b.i.d. and trazodone 100 mg p.o. daily. LABORATORY DATA: Showed a white blood cell count of 12.78, hemoglobin 11.8, hematocrit 36, platelets 269. PT/INR of 13.6 and 1.03, with a D-dimer of 0.72. Sodium 142, potassium 4.9, chloride 104. CO2 is 24, BUN 18, creatinine 1.4, glucose 97. Creatine kinase of 89. Troponin was negative. ProBNP of 1740. Urinalysis was negative. Urine drug screen was presumptive positive for benzodiazepines. Chest x-ray showed a pleural effusion and mild pulmonary edema. EKG showed normal sinus rhythm at 75. Pulmonary arteriogram showed bilateral pleural effusions, basilar atelectasis, and some mild interstitial pulmonary edema. Chronic ground-glass opacities in the right upper lobe posteriorly which are worse than on 04/02/2018. The possibility of an atypical pneumonia or even bronchoalveolar cell carcinoma could not be excluded, and some subcarinal adenopathy. REVIEW OF SYSTEMS: He denied any fever. He was positive for chills, cough, shortness of breath, wheezing, right lower extremity edema. Denied any abdominal pain, constipation, diarrhea, burning or hurting with urination. PHYSICAL EXAMINATION: VITAL SIGNS: On arrival, he had a temperature of 98.1, pulse 71, respirations 18, blood pressure 180/96. It did go up to 174/116. HEENT: Normocephalic, atraumatic. Normal ENT inspection. Oropharynx and nares are clear. EYES: Pupils are equal, round, and reactive to light and accommodation. Extraocular movements are intact. NECK: Normal inspection, normal range of motion. LUNGS: With some scattered mild wheezing and decreased breath sounds to the bilateral bases. Equal lung expansion with chest wall movement is noted. HEART: Regular rate and rhythm. No murmurs, rubs, or gallops. ABDOMEN: Soft, nontender, nondistended. Bowel sounds are present x4 quadrants. MUSCULOSKELETAL: Has 5/5 strength x4 extremities. He does have 2+ pitting edema to his right lower extremity. NEUROLOGICAL: Cranial nerves II-XII appear grossly intact. ASSESSMENT: 1. Right upper lobe pneumonia. 2. Mild leukocytosis. 3. Elevated D-dimer, ruled out for pulmonary embolism. 4. Acute kidney injury. 5. Hypertension, uncontrolled. 6. Right lower extremity edema. PLAN: He is being admitted to the medical unit and placed on telemetry and O2 per protocol. Incentive spirometry. Turn, cough and deep breathe every [address] on Rocephin 1 gram IV every 24 hours and azithromycin 500 IV every 24 hours. We are going to do a bilateral lower extremity venous Doppler, place on Lovenox 40 mg subcutaneous every 24 hours. I am going to give him some gentle hydration of normal saline at 50 mL an hour. Continue his home medications as previously identified. We will also give him some hydralazine 10 mg IV every 4 hours p.r.n. for a systolic blood pressure greater than 190, diastolic greater than 100. We will recheck a CBC and BMP in the a.m. Further orders after seen by attending. Blood cultures x2 are pending. Dictated by RONY Raphael for Que Martin MD cc: RONY Raphael MD Marlin D. Gill, MD I agree with most components of history, physical, assessment and plan. A separate addendum has been dictated. CARMEN
--- NOTE | 2019-03-07 22:56 | HISTORY AND PHYSICAL ---
ADDENDUM TO HISTORY AND PHYSICAL DICTATED BY THE NURSE PRACTITIONER: I agree with most components of history, physical, assessment, and plan. In brief, Mr. Jordan is a 73-year-old man with past medical history of alcohol abuse, tobacco abuse, upper GI bleed, prostatic nodule, who comes in with chief complaints of feeling short of breath, bilateral lower extremity edema since about 4 weeks duration. He also had occasional associated cough. In the emergency room he was found to be hypertensive with blood pressure over 190 systolic and mild leukocytosis, so the hospitalist team was consulted for further management. SUBJECTIVE: Mr. Jordan denies any cough. He states that occasionally he is feeling short of breath. He is worried about his lower extremity swelling. He states he previously had the swelling in 2018 where the cardiac workup was negative. He was also on Entresto at some point following which his swelling had decreased. However, since last 4 weeks, he again has started noticing this swelling again. VITALS: Temperature of 98.7 degrees, pulse 73, respiratory 18, blood pressure 170/90, he is saturating 98% on room air. PHYSICAL EXAMINATION: GENERAL: He is not in acute distress. ORAL CAVITY: Is moist. LUNGS: Air entry bilaterally equal. No wheeze or rhonchi. He had inspiratory crackles bilateral infrascapular region. CARDIOVASCULAR: S1, S2 normal. No murmur or gallop. ABDOMEN: Soft, nontender. He has positive hepatojugular reflex. EXTREMITIES: He has bilateral lower extremity edema extending up to knee. LABS: Mild leukocytosis, normocytic anemia. Normal platelet count. He does have elevated creatinine to 1.4. His baseline is 1.2. He also has elevated proBNP. Microbiology: Blood cultures have been collected. He unfortunate underwent pulmonary arteriogram which had bilateral pleural effusions and basilar atelectasis. ASSESSMENT AND PLAN: 1. Right upper lobe pneumonia. I will start him on intravenous ceftriaxone and azithromycin. Follow up with blood culture, urine antigen, and sputum culture results. I discussed with him about need for outpatient followup CT scan 4 weeks later to make sure the pneumonia gets better. Otherwise, he may need bronchoscopy to rule out any cancer. He understood it. 2. Bilateral lower extremity edema and positive hepatojugular reflex. The echocardiogram in 2018 was unremarkable, but the patient also stated that he was on Entresto at some point. I will get echocardiogram. I will give him 1 time dose of Lasix to see what exactly is a contributing factor of his edema. He does not have liver dysfunction. He has mild kidney dysfunction. I will get the urine protein creatinine; however, his albumin level is normal. 3. Hypertensive urgency. I will start him on his home medications of metoprolol, hydralazine. I will give him p.r.n. hydralazine as needed. 4. Alcohol use disorder. He has been to rehab recently. I will continue his home olanzapine, duloxetine, and clonazepam as needed. DISPOSITION: I will monitor patient under telemetry unit. Plan of care discussed with him. His questions have been answered. cc: Que Martin MD
[2019-03-08] MEDS: KLOR-CON PO SCH ×3 (00:16→20:37)
[2019-03-08] MEDS: DUONEB (A & A) INH SCH ×7 (00:28→23:18)
[2019-03-08] MEDS ORDERED: MORPHINE IV ONE (01:20)
[2019-03-08] MEDS: PRILOSEC PO SCH (06:03)
[2019-03-08 06:45] LABS: BASO# 0.05 X1000 (0.0-0.2); BASO% 0.4 % (0.0-0.8); EOS# 0.72 X1000 (0.0-0.7); EOS% 6.4 % (0.0-10.0); HEMATOCRIT 33.8 % (42.0-52.0); HEMOGLOBIN 11.1 g/dL (14.0-18.0); IMM GRAN# 0.05 X1000 (0.0-0.04); IMM GRAN% 0.4 % (0.0-0.5); LYMPH# 2.48 X1000 (1.2-3.4); MCH 31.9 PG (27-31); MCHC 32.8 g/dL (33-37); MCV 97.1 FL (81-99); MONO# 1.05 X1000 (0.11-0.59); MONO% 9.3 % (1.7-9.3); NEUT# 6.93 X1000 (1.4-6.5); NEUT% 61.5 % (42.2-75.2); PLT 282 X1000 (130-400); RBC 3.48 XMIL (4.7-6.1); RDW 14.7 % (11.5-14.5); WBC 11.28 X1000 (4.8-10.8)
[2019-03-08 07:09] LABS: CREATININE 1.4 mg/dL (0.7-1.2); POTASSIUM 4.3 mmol/L (3.5-5.1)
[2019-03-08] MEDS: TYLENOL PO SCH ×2 (08:14→20:36)
[2019-03-08] MEDS: TOPROL XL PO SCH (08:14)
[2019-03-08] MEDS: ATARAX PO SCH ×2 (08:15→20:37)
[2019-03-08] MEDS: CYMBALTA PO SCH (08:15)
[2019-03-08] MEDS: FLOMAX PO SCH ×2 (08:15→20:37)
[2019-03-08] MEDS ORDERED: PRINIVIL PO SCH (09:00)
[2019-03-08] MEDS ORDERED: LASIX IV ONE (14:50)
--- NOTE | 2019-03-08 15:14 | ECHO REPORT ---
ORDER DATE: 03/07/2019 INTERPRETING PHYSICIAN: Dr. Sabas Rodriges ECHOCARDIOGRAPHIC MEASUREMENTS: 1. Interventricular septum: 1.0 cm. 2. Posterior wall: 1.0 cm. 3. Diastolic diameter: 3.9 cm. 4. Left atrium: 4.0 cm. 5. Aortic root: 2.3 cm. SUMMARY OF THE 2-DIMENSIONAL IMAGIN. Aortic valve leaflets are trileaflet. 2. Mitral valve was normal. 3. Tricuspid valve was normal. 4. Pulmonic valve was normal. 5. There is left atrial enlargement. 6. There is mild mitral regurgitation. 7. Mild tricuspid regurgitation. Peak velocity across the tricuspid valve was 2.8 m/sec. 8. Pulmonary artery systolic pressure of 43 mmHg. 9. Peak velocity across the aortic valve less than 2 m/sec. 10. There is no aortic stenosis or regurgitation, 11. There is no pericardial effusion or obvious intracardiac mass or thrombus seen. 12. Normal left ventricular cavity size. Estimated ejection fraction of 65%. cc: MD Que Sveerino MD
[2019-03-08] MEDS: ROCEPHIN 1 GM in NS 50 ML IV SCH (16:26)
--- NOTE | 2019-03-08 17:40 | PROGRESS NOTE ---
DATE: 03/08/2019 INTERVAL HISTORY: He received a dose of Lasix yesterday after which he had more than 3 L of urine output. His echocardiogram report is still pending. He denies any chest pain, shortness of breath. His cough is also improving. He denies nausea, vomiting, abdominal pain. His swelling in the legs has been decreasing. We discussed about possible heart disease. We also discussed about stable kidney function. I answered all of his questions. OBJECTIVE: Vital Signs: Temperature 98.1 degrees, pulse 77, respiratory 16, blood pressure 128/77, and saturating 98% on room air. General: Not in acute distress. HEENT: Oral cavity is moist. Lungs: Air entry bilaterally equal. No wheeze, rhonchi. Mild inspiratory crackles in infrascapular region both lungs. Cardiovascular: S1, S2 normal. No murmur or gallop. Abdomen: Soft, nontender. Active bowel sounds. Extremities: He does have bilateral lower extremity edema, more pronounced on the right lower extremity. Neurologic: He is alert and oriented x3. LABORATORY DATA: Suggestive of improving leukocytosis, normocytic anemia, normal platelet count. He does have elevation in his BUN and stable creatinine. Microbiology: Blood cultures have been collected. IMAGING: Echocardiogram is suggestive of ejection fraction of 65%. He does have pulmonary arterial hypertension with pressure of 43 mmHg without any other significant structural abnormalities. ASSESSMENT AND PLAN: 1. Right upper lobe pneumonia. Continue intravenous ceftriaxone, azithromycin. Follow up blood culture. He has not been able to make sputum. His Legionella and strep antigens are in the lab. He should have outpatient CT scan in 4 weeks to make sure his pneumonia has improved. 2. Bilateral and predominantly right lower extremity edema. His hepatojugular reflex and jugular venous pressure have improved after intravenous Lasix yesterday. His edema is also better. I will give him additional dose of Lasix. Echocardiogram does not suggest any left ventricular systolic dysfunction though he does have pulmonary artery hypertension. He was previously a chronic alcoholic, which could have contributed. He was previously chronic alcoholic and tobacco abuser. He does not have all the features of cor pulmonale tough. I will continue to monitor his BMP. The other differential diagnosis could be poor venous tone secondary to alcoholic neuropathy, and he may need oral Lasix after discharge. 3. Kidney dysfunction. His creatinine appears stable. His albumin level is normal. I will continue to watch the creatinine level and follow up with BMP. Historically, his kidney function has been around 1.2, so he is not very far from it. 4. Hypertensive urgency on presentation. Continue home metoprolol, hydralazine and as needed hydralazine. 5. Others. Continue home olanzapine, trazodone, clonazepam, duloxetine, hydroxyzine for anxiety, depression, chronic pain. DISPOSITION: I will monitor his BMP and give him an additional dose of IV Lasix today. Will consider discharging him on oral Lasix in 24 to 48 hours. Plan of care discussed with the patient. His questions have been answered. cc: Que Martin MD
[2019-03-08] MEDS: ZITHROMAX 500 MG/NS 500 MG/250 ML IVPB IV SCH (17:50)
[2019-03-08] MEDS: DESYREL PO SCH (20:36)
[2019-03-08] MEDS: ZYPREXA PO SCH (20:36)
[2019-03-08] MEDS: LOVENOX SUBQ SCH (20:43)
--- NOTE | 2019-03-08 21:20 | Extremity Venous Study ---
PROCEDURE NAME: Venous U/S Bilateral Legs - 03/07/2019 REFERRING PHYSICIAN: Gurinder Kerr MD INTERPRETING PHYSICIAN: Damon Hopper MD SALES SERVICE REP: [place]. INDICATIONS: The patient has edema, shortness of breath, pneumonia. FINDINGS: Bilateral lower extremity venous images accomplished. The common femoral, superficial femoral, deep femoral, popliteal, posterior tibial, peroneal, and greater saphenous veins are imaged bilaterally. Doppler is used to evaluate the veins for spontaneity, phasicity, respiratory excursion, distal augmentation. All veins are compressible. No intraluminal clot is seen. INTERPRETATION: No evidence of deep or superficial venous thrombosis in the lower extremity veins identified. cc: Damon Hopper MD
[2019-03-09] MEDS: DUONEB (A & A) INH SCH ×6 (03:38→23:10)
[2019-03-09] MEDS: PRILOSEC PO SCH (06:14)
[2019-03-09 07:12] LABS: CALCIUM 8.9 mg/dL (8.8-10.2); CREATININE 1.6 mg/dL (0.7-1.2); MAGNESIUM 1.9 mg/dL (1.5-2.7); POTASSIUM 4.2 mmol/L (3.5-5.1)
[2019-03-09] MEDS: KLOR-CON PO SCH ×2 (09:20→20:01)
[2019-03-09] MEDS: TYLENOL PO SCH ×2 (09:20→20:01)
[2019-03-09] MEDS: CYMBALTA PO SCH (09:20)
[2019-03-09] MEDS: TOPROL XL PO SCH (09:20)
[2019-03-09] MEDS: ATARAX PO SCH ×2 (09:20→20:01)
[2019-03-09] MEDS: FLOMAX PO SCH ×2 (09:20→20:01)
[2019-03-09] MEDS: ZITHROMAX 500 MG/NS 500 MG/250 ML IVPB IV SCH (16:11)
[2019-03-09] MEDS: ROCEPHIN 1 GM in NS 50 ML IV SCH (16:32)
--- NOTE | 2019-03-09 17:04 | Diag Imaging Result Doc PS360 ---
EXAM: CT ABDOMEN/PELVIS W/O CONTRAST - 03/09/2019 HISTORY: R/o hydronephrosis/intrabdominal mass/IVC compress TECHNIQUE: CT abdomen/pelvis without contrast. No contrast administered per request of the referring provider. COMPARISON: 04/02/2018 CT abdomen/pelvis with contrast FINDINGS: There has been development of bilateral pleural effusions, larger on the right than on the left. There are no substantial abnormalities of the liver, spleen, adrenal glands, or pancreas identified. There are no calcified gallstones or pericholecystic inflammation identified. There is no evidence of renal stone or hydronephrosis. There are bilateral renal cysts similar to prior. There are no substantially enlarged lymph nodes identified. There is no evidence of mass compressing the inferior vena cava. There are atherosclerotic calcifications noted. There are lumbar spine degenerative changes noted. There is no evidence of bowel obstruction. There is a moderate amount retained fecal debris in the colon. The rectosigmoid colon is elongated and moderately distended with fecal debris. There is no substantial bowel wall thickening identified. There is no abscess identified. There is no free air or substantial free fluid identified. IMPRESSION: Bilateral pleural effusions, larger on the right than on the left. No evidence of renal stone or hydronephrosis. No indication of mass or adenopathy compressing the inferior vena cava. Evidence of constipation plus or minus rectal sigmoid fecal impaction. This exam was performed using automated exposure control, adjustment of mA or kV according to patient size, and/or use of iterative reconstruction technique. Electronically signed by Abhi Vee 03/09/2019 5:01 PM
--- NOTE | 2019-03-09 18:50 | PROGRESS NOTE ---
DATE: 03/09/2019 INTERVAL HISTORY: No acute events overnight. He responded well to intravenous Lasix and he had 2.4 L of urine yesterday. Mr. Jordan is otherwise feeling fine. Denies any new complaints. We discussed about his poor kidney function and normal echocardiogram. I answered all of his questions. He denies any chest pain, shortness of breath, or cough. Denies nausea, vomiting, or abdominal pain. He has not had any bowel movement, and I will start him on a stool softener. VITAL SIGNS: Temperature of 98.7 degrees, pulse 84, respiratory rate 17, blood pressure 130/60, saturating 96% on room air. PHYSICAL EXAMINATION: Not in acute distress. Oral cavity is moist. Air entry bilaterally equal. No wheeze or rhonchi. Mild crackles of infrascapular region. S1, S2 normal. No murmur or gallop.Abdomen: Soft, nontender. He has bilateral ankle edema. LABORATORY DATA: Labs suggestive of leukocytosis, normal platelet count. He does have elevation in BUN and creatinine. Magnesium is normal. MICROBIOLOGY: No positive data. IMAGING: Abdomen and pelvis CT was performed, which had bilateral pleural effusion larger on the right than on the left. There was no evidence of any structural renal disease, mass, or adenopathy compressing the inferior vena cava. Kidneys were normal. ASSESSMENT AND PLAN: 1. Right upper lobe atypical pneumonia. His repeat CT scan looks better. I will continue intravenous ceftriaxone and azithromycin. 2. Bilateral lower extremity edema status post Lasix. I am holding additional doses of Lasix since his kidney function worsened. His edema has improved. Echocardiogram does not suggest any left ventricular systolic dysfunction, though he has moderate pulmonary hypertension. CT scan of the abdomen and pelvis did not have any intra-abdominal mass, so the etiology of his pleural effusions and lower extremity edema is not entirely clear to me. The lower extremity edema could be related to chronic venous insufficiency. However, he may need outpatient pulmonology followup. 3. Kidney dysfunction. I will get urine electrolytes. This could be in the setting of Lasix use, and I will follow up BMP tomorrow. 4. Hypertensive urgency on presentation. Now, well controlled on metoprolol and as-needed IV hydralazine. 5. Others. Continue home olanzapine, trazodone, clonazepam, duloxetine, hydroxyzine for anxiety, depression, and chronic pain. DISPOSITION: If his BMP improves, my plan is to discharge him home. Plan of care discussed with him. His questions have been answered. cc: Que Martin MD
[2019-03-09] MEDS: DULCOLAX PR SCH (20:00)
[2019-03-09] MEDS: DESYREL PO SCH (20:01)
[2019-03-09] MEDS: LOVENOX SUBQ SCH (20:01)
[2019-03-09] MEDS: ZYPREXA PO SCH (20:02)
[2019-03-10] MEDS: DUONEB (A & A) INH SCH ×4 (03:14→15:19)
[2019-03-10 04:39] LABS: PROTEIN CREAT RATIO 0.1; UR PROT RANDOM 9.8 mg/dL
[2019-03-10] MEDS: PRILOSEC PO SCH (05:59)
[2019-03-10 06:57] LABS: BASO# 0.05 X1000 (0.0-0.2); BASO% 0.5 % (0.0-0.8); EOS# 0.94 X1000 (0.0-0.7); EOS% 9.6 % (0.0-10.0); HEMATOCRIT 33.6 % (42.0-52.0); IMM GRAN# 0.05 X1000 (0.0-0.04); IMM GRAN% 0.5 % (0.0-0.5); LYMPH# 2.35 X1000 (1.2-3.4); MCH 32.1 PG (27-31); MCHC 32.7 g/dL (33-37); MONO# 0.95 X1000 (0.11-0.59); MONO% 9.7 % (1.7-9.3); MPV 10.1 FL (7.4-10.4); NEUT# 5.44 X1000 (1.4-6.5); NEUT% 55.7 % (42.2-75.2); PLT 302 X1000 (130-400); RBC 3.43 XMIL (4.7-6.1); RDW 14.7 % (11.5-14.5); WBC 9.78 X1000 (4.8-10.8)
[2019-03-10 07:33] LABS: CALCIUM 9.1 mg/dL (8.8-10.2); CREATININE 1.4 mg/dL (0.7-1.2); POTASSIUM 4.7 mmol/L (3.5-5.1)
[2019-03-10] MEDS: TOPROL XL PO SCH (10:50)
[2019-03-10] MEDS: KLOR-CON PO SCH (10:50)
[2019-03-10] MEDS: TYLENOL PO SCH (10:50)
[2019-03-10] MEDS: ATARAX PO SCH (10:51)
[2019-03-10] MEDS: FLOMAX PO SCH (10:51)
[2019-03-10] MEDS: CYMBALTA PO SCH (10:51)
[2019-03-10] MEDS: DULCOLAX PR SCH (10:51)
[2019-03-10 15:15] VITALS: BP 137/70
[2019-03-10] MEDS: ZITHROMAX 500 MG/NS 500 MG/250 ML IVPB IV SCH (16:10)
[2019-03-10] MEDS: ROCEPHIN 1 GM in NS 50 ML IV SCH (17:24)
--- NOTE | 2019-03-11 20:52 | DISCHARGE SUMMARY ---
ADMISSION DATE: 03/07/2019 DISCHARGE DATE: 03/10/2019 DISCHARGE DISPOSITION: Back to a [facility] facility where he has been residing since the last one month to help him quit alcohol and tobacco. DISCHARGE CONDITION: Hemodynamically stable. His lower extremity edema has significantly decreased. He is denying any shortness of breath, chest pain, or cough. DISCHARGE DIAGNOSES: 1. Right upper lobe atypical pneumonia. 2. Bilateral lower extremity edema. 3. Kidney dysfunction. 4. Hypertensive urgency on presentation. 5. Anxiety. OTHER DIAGNOSES: 1. History of anxiety. 2. History of depression. 3. History of chronic pain. 4. 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 5. History of bleeding peptic ulcer. 6. History of benign prostatic hypertrophy. DISCHARGE MEDICATIONS: Olanzapine 5 mg at nighttime, hydroxyzine 25 mg b.i.d., duloxetine 60 mg daily, tamsulosin 0.4 mg b.i.d., lisinopril 40 mg daily, omeprazole 40 mg daily, potassium 20 mEq b.i.d., metoprolol succinate extended release 50 mg daily, acetaminophen 1000 mg b.i.d., trazodone 100 mg at nighttime, azithromycin 500 mg daily, cefuroxime 500 mg every 12 hours #8 tablets have been prescribed, furosemide 20 mg daily #15 tablets have been prescribed. DISCHARGE VITAL SIGNS: Temperature 99 degrees, pulse 75, respiratory rate 20, blood pressure 137/70, saturating 96 on room air. PHYSICAL EXAMINATION: Not in any acute distress. Oral cavity is moist. Air entry bilaterally equal. No wheeze or rhonchi. Mild inspiratory crackles in right infrascapular region. S1, S2 normal, regular. No murmur, rub, or gallop. Abdomen: Soft, nontender. Mild bilateral ankle edema. He is alert and oriented x3. LABS DURING HOSPITAL ADMISSION AND DISCHARGE: He had WBC of 12,000 on presentation, which improved to 9000 at the time of discharge. Hemoglobin is 11, platelet count 302,000. BUN is 30, creatinine 1.4. His urine toxicology was positive for benzodiazepines. His urine Legionella and Streptococcus antigen were negative. SIGNIFICANT MICROBIOLOGY: Blood culture did not have any growth. SIGNIFICANT IMAGING DURING HOSPITAL ADMISSION: Chest x-ray on presentation had pleural effusions and bilateral pulmonary edema. Pulmonary arteriogram had bilateral pleural effusions, basal atelectasis, mild interstitial pulmonary edema, chronic ground-glass opacity in the right upper lobe posteriorly which was worse than on March 2018, possibility of atypical pneumonia or bronchoalveolar carcinoma could not be excluded. There was subcarinal adenopathy. Extremity venous studies of bilateral lower extremities did not have any superficial or deep venous thrombosis. Echocardiogram had ejection fraction of 65%, pulmonary artery systolic pressure of [address] had bilateral pleural effusions, larger on the right than on the left. No evidence of renal stone or hydronephrosis. No indication of mass or adenopathy compressing the inferior vena cava. HOSPITAL COURSE SUMMARY: Mr. Jordan is a 73-year-old, man, with past medical history of chronic alcohol and tobacco abuse, who recently quit both of them about one month ago, and then had enrolled into and was living at a [facility]-based facility, came in with chief complaints of shortness of breath, cough, wheezing, and bilateral lower extremity edema. In the emergency room, he was found to have leukocytosis of 12,000, had elevated D-dimer of 0.72, and had creatinine of 1.4, so Hospitalist team was consulted for further management. His initial workup ordered by emergency room including pulmonary arteriogram despite elevated creatinine, did not detect pulmonary embolism, though he did have bilateral pleural effusion and pulmonary edema, and there was a suspicion of atypical pneumonia in the right upper lobe. He was admitted. He was started on intravenous diuretics and intravenous antibiotics. Echocardiogram was performed and ultrasound of lower extremities was ordered. With intravenous diuretics and intravenous antibiotics, his clinical condition improved. He was breathing on room air without any difficulty and he was not having any cough, so it was decided to discharge him on oral Lasix and oral antibiotics. Ultrasound of lower extremities did not have any DVT. CT scan of the abdomen and pelvis performed for mild kidney dysfunction had normal kidneys and there was no intra-abdominal mass compressing the IVC. The etiology of his lower extremity edema was not entirely clear, also the etiology of bilateral pleural effusion was not entirely clear. Though he did have [id number] pulmonary hypertension with pulmonary artery systolic pressure of 43 mmHg, it was thought that he may have venous insufficiency related to chronic alcohol use, which may have caused ankle edema. At the time of discharge, he was provided detailed discharge instructions to have a followup with lung doctor, and discussed about if he would need further imaging to make sure he does not have any lung cancer. He was also provided instructions about completing antibiotic course. I also talked with the nurse practitioner who is working at his facility, and informed her about the patient's medical condition and discharge plan. All of her questions were answered. TIME SPENT: 25 minutes was spent discharging this patient. cc: Que Martin MD MTDD
== END 2019-03-10 18:31 | disposition home or self-care (01) | DRG 194 ==
LOC: ED 13:07 → 4N 17:46
PROVIDERS: ATTEND Internal Medicine